=== PATIENT | male | born 1985 | race American Indian/Alaskan Native ===

== ENCOUNTER 2016-07-24 08:42 | Emergency (ER) | payer SELFPAY ==
[2016-07-24 09:44] VITALS: BP 120/87
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
[2016-07-24] MEDS ORDERED: XYLOCAINE 1% MPF 5 mL INFILTRATI ONE (14:41)
[2016-07-24] MEDS ORDERED: ROCEPHIN IM ONE (14:41)
[2016-07-24] MEDS ORDERED: ZITHROMAX PO ONE (14:41)
[2016-07-24 15:04] LABS: Bilirubin,Urine NEG (Negative); Blood,Urine SM (Negative); Ketones,Urine NEG (Negative); Leukocyte Esterase,Urine LG (Negative); Mucus,Urine FEW /HPF; Nitrite,Urine NEG (Negative); Protein,Urine <15 mg/dL mg/dL (Negative); Urobilinogen,Urine < 2.0 mg/dL (<2.0)
[2016-07-24 15:05] LABS: WBC,Urine > 182.0 /HPF (0.0-6.0)
[2016-07-24] MEDS ORDERED: ZITHROMAX ONE (15:42)
== END 2016-07-24 16:24 | disposition home or self-care (01) ==
LOC: ED 08:42
DX: N39.0 Urinary tract infection, site not specified (principal); A64 Unspecified sexually transmitted disease; F12.10 Cannabis abuse, uncomplicated
CPT/HCPCS: 81001; 87591; 96372; 99283; J0696

== ENCOUNTER 2019-05-09 20:42 | Emergency (ER) | payer SELFPAY ==
[2019-05-09 20:51] VITALS: BP 128/88
[2019-05-09] MEDS ORDERED: AZITHROMYCIN 250 MG TAB PO ONE (22:07)
[2019-05-09] MEDS ORDERED: LIDOCAINE-MPF (1%) 10 MG/1 ML VIAL 5 ML INFILTRATI ONE (22:07)
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
[2019-05-09 22:57] LABS: Bacteria,Urine 1+ /HPF (Negative); Bilirubin,Urine NEG (Negative); Blood,Urine NEG (Negative); Color,Urine Yellow (Yellow); Protein,Urine <15 mg/dL mg/dL (Negative); Urobilinogen,Urine < 2.0 mg/dL (<2.0)
== END 2019-05-09 23:05 | disposition home or self-care (01) ==
LOC: ED 20:42
DX: B97.89 Other viral agents as the cause of diseases classified elsewhere (principal); R30.0 Dysuria; Z87.891 Personal history of nicotine dependence
CPT/HCPCS: 81001; 87086; 96372; 99283; J0696

== ENCOUNTER 2019-05-11 17:14 | Emergency (ER) | payer SELFPAY ==
[2019-05-11 17:36] VITALS: BP 137/89
--- NOTE | 2019-05-11 17:38 | Emergency Department Report ---
Chief Complaint: Urogenital-Male Stated Complaint: BURN WHEN PEEING Time Seen by Provider: 05/11/19 17:34 - HPI History of Present Illness: This is a 33 y.o. M. that presents to the ER with penile discharge and dysuria for 5 days. Denies pelvic pain, back pain, testicular/swelling, or fever. - Exam Vital Signs: Vital Signs 05/11/19 17:34 Temperature 98.8 F Pulse Rate 99 H Respiratory 16 Rate Blood Pressure 137/89 [Left] O2 Sat by Pulse 96 Oximetry MSE screening note: Focused history and physical exam performed. Due to findings the following was ordered: Urinalysis ED Medical Decision Making - Medical Decision Making ED Disposition for MSE Condition: Stable
[2019-05-11] MEDS ORDERED: LIDOCAINE-MPF (1%) 10 MG/1 ML VIAL 5 ML INFILTRATI ONE (19:51)
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
== END 2019-05-11 20:39 | disposition home or self-care (01) ==
LOC: ED 17:14
DX: R30.0 Dysuria (principal); R36.9 Urethral discharge, unspecified; Z91.013 Allergy to seafood
CPT/HCPCS: 96372; J0696